=== PATIENT | male | born 1970 | race Caucasian/White ===

== ENCOUNTER 2022-06-12 14:41 | Emergency (ER) | payer MEDICAID ==
[~2022-06-12] VITALS: Ht 177.8 cm; Wt 81.6 kg
[2022-06-12 14:50] VITALS: BP 119/76
--- NOTE | 2022-06-12 14:50 | NUR ---
[facility] ALS TO ER BED 8
[2022-06-12] MEDS ORDERED: ALBUTEROL SULFATE/IPRATROPIU 3 ML SOL IH ONE ×2 (14:55→15:10)
--- NOTE | 2022-06-12 15:00 | NUR ---
52YO MALE PT BIBA FROM URGENT CARE C/O INCREASED SOB AND PRESSURED CHEST PAIN W/O RADIATION XTODAY. STATES GOING TO URGENT DUE TO SOB X3DAYS. MOIST COUGH PRESENT . MARIANA WHEEZING NOTED. RECEIVED BREATHING TX PRIOR TO ARRIVAL, STATES MILD RELIEF. DENIES N/V/D, FEVER OR CHILLS. 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 HX:ASTHMA N
[2022-06-12] MEDS ORDERED: PRED20TA5 PO (16:56)
[2022-06-12] MEDS ORDERED: ALBU0.0912 IH (16:56)
--- NOTE | 2022-06-12 17:28 | NUR ---
IV removed, catheter intact and site benign. Applied folded 4x4 gauze and tape to stop bleeding.
[2022-06-12 17:30] VITALS: BP 117/66
--- NOTE | 2022-06-12 17:30 | NUR ---
Patient discharged with v/s stable. Written and verbal after care instructions FOR ASTHMA given and explained. Patient alert, oriented and verbalized understanding of instructions. Ambulatory with steady gait. All questions addressed prior to discharge. ID band removed. Patient advised to follow up with PMD. Rx of PREDNISONE AND ALBUTEROL given. Opportunity to ask questions provided and answered.
--- NOTE | 2022-06-12 17:31 | NUR ---
The patient's care was reviewed and supervised by Stephanie Blackwell RN.
== END 2022-06-12 17:30 | disposition home or self-care (01) ==
LOC: MED 14:41
DX: J45.901 Unspecified asthma with (acute) exacerbation (principal); Z79.899 Other long term (current) drug therapy
CPT/HCPCS: 71045; 94640; 99283; Q0092